=== PATIENT | male | born 1995 | race African-American/Black ===

== ENCOUNTER 2024-05-21 07:27 | Emergency (ER) | payer OTHER ==
[~2024-05-21] VITALS: Ht 180.3 cm; Wt 77.1 kg
[2024-05-21 07:38] VITALS: BP 136/83; PULSE 67; RESP 16; TEMP 97.2; O2SAT 100
[2024-05-21] MEDS ORDERED: KETOROLAC 60 MG/2 ML VIAL IM ONE (07:57)
[2024-05-21] MEDS ORDERED: IBUP-2213 PO (07:58)
[2024-05-21] MEDS ORDERED: ONDA8TAB87 PO (07:58)
[2024-05-21] MEDS: ONDANSETRON 4 MG ODT PO ONE (08:01)
[2024-05-21] MEDS: KETOROLAC 60 MG/2 ML VIAL IM ONE (08:05)
[2024-05-21 08:10] VITALS: BP 125/73; PULSE 67; RESP 16; TEMP 97.2; O2SAT 100
== END 2024-05-21 08:10 | disposition home or self-care (01) ==
LOC: MED 07:27
DX: R10.13 Epigastric pain (principal); R11.2 Nausea with vomiting, unspecified; R19.7 Diarrhea, unspecified; R03.0 Elevated blood-pressure reading, without diagnosis of hypertension; Z88.0 Allergy status to penicillin
CPT/HCPCS: 96372; 99283; J1885; Q0162